=== PATIENT | female | born 1960 | race Caucasian/White ===

== ENCOUNTER → 2017-05-24 | Outpatient (REF) | payer OTHER | LOC: M LAB REF 17:19 | PROVIDERS: ATTEND Emergency Medicine | DX: Z01.419 Encounter for gynecological examination (general) (routine) without abnormal findings (principal) ==

== ENCOUNTER → 2018-08-31 | Outpatient (CLI) | payer OTHER ==
--- NOTE | 2018-09-06 12:54 | SLEEPCENT ---
DATE OF PROCEDURE: 08/31/2018 ORDERED BY: Nelda Mcnamara Nocturnal polysomnography was performed for evaluation of sleep physiology in this patient with prior history of obstructive sleep apnea syndrome who has accomplished significant weight loss. 7 hours and 24 minutes of data were reviewed. There were 392 minutes of sleep identified. Sleep latency was mildly prolonged at 36 minutes. Rapid eye movement (REM) latency was mildly prolonged at 158 minutes. Sleep architecture was good with 3 REM cycles. Minimal fragmentation. Overall sleep efficiency was 89.8%. The patient's electrocardiogram showed a sinus rhythm with an average heart rate of 58 beats per minute. Isolated PVCs were seen. Electroencephalogram (EEG) showed normal waveforms for awake and sleep stages. There were only 15 respiratory events identified of 10 seconds in duration or greater for an apnea-hypopnea index of 2.3, within normal limits. Some snoring was noted, but arousals from respiratory events when snoring was included occurred only 2.9 times per hour. There were only 4 occasions of saturation that dropped below 90%, 2 of which occurred artifactual. Limb activity was minimal. IMPRESSION: Normal nocturnal polysomnography with snoring.
== END ==
LOC: M SLEEP 19:39
PROVIDERS: ATTEND Nurse Practitioner Adult Health
DX: G47.30 Sleep apnea, unspecified (principal)

== ENCOUNTER 2022-04-16 01:32 | Emergency (ER) | payer OTHER ==
[~2022-04-16] VITALS: Ht 154.9 cm; Wt 79.2 kg
[2022-04-16 01:34] VITALS: BP 141/85
[2022-04-16] MEDS ORDERED: PRED20TA PO (05:10)
[2022-04-16] MEDS ORDERED: predniSONE 20 MG TAB PO ONE (05:15)
== END 2022-04-16 05:47 | disposition home or self-care (01) ==
LOC: M ED 01:32
DX: T63.441A Toxic effect of venom of bees, accidental (unintentional), initial encounter (principal)
CPT/HCPCS: 99283; J7512